=== PATIENT | female | born 1975 | race Caucasian/White ===

== ENCOUNTER 2017-04-22 13:41 | Emergency (ER) | payer SELFPAY ==
[2017-04-22 15:00] LABS: #Basophils 0.1 thou/uL (0.0-0.2); #Eosinphils 0.2 thou/uL (0.0-0.7); #Monocytes 1.1 thou/uL (0.11-0.59); #Neutrophils 7.8 thou/uL (1.40-6.50); %Basophils 0.5 % (0.0-1.0); %Eosinophils 1.6 % (0.0-10.0); %Lymphocytes 30.1 % (21.0-51.0); %Monocytes 8.4 % (0.0-10.0); Hematocrit 39.7 % (36.0-47.0); Mean Platelet Volume 7.5 fL (7.4-10.4); Red Blood Cell (RBC) Count 4.09 mill/uL (4.20-5.40); White Blood Cell (WBC) Count 13.1 thou/uL (4.8-10.8)
[2017-04-22 15:22] LABS: ALT (SGPT) 36 U/L (8-55); AST (SGOT) 29 U/L (5-34); Alkaline Phosphatase 95 U/L (40-150); Anion Gap 9 mmol/L (10-20); BUN (Urea Nitrogen) 9 mg/dL (7.0-18.7); Bilirubin, Total 0.2 mg/dL (0.2-1.2); Calc. Creatinine Clearance 0 mL/min (70-130); Calcium 9.3 mg/dL (7.8-10.44); Carbon Dioxide 24 mmol/L (22-29); Chloride 107 mmol/L (98-107); Estimated GFR-MDRD Greater than 90; Globulin 3.6 g/dL (2.4-3.5); Protein, Total 7.1 g/dL (6.0-8.3)
[2017-04-22] MEDS ORDERED: Ondansetron HCl/PF 4 MG/2 ML Vial ONE (15:35)
[2017-04-22 17:32] LABS: Bilirubin Negative (Negative); Blood, Urine Negative (Negative); Glucose, Urine (Dipstick) Negative (Negative); Ketone, Urine Negative (Negative); Nitrite Negative (Negative); Protein, Urine (Dipstick) Negative (Neg-Trace)
== END 2017-04-22 17:18 | disposition home or self-care (01) ==
LOC: ERS 13:41
DX: R11.2 Nausea with vomiting, unspecified (principal); R19.7 Diarrhea, unspecified; M10.9 Gout, unspecified; Z71.6 Tobacco abuse counseling; F17.210 Nicotine dependence, cigarettes, uncomplicated
CPT/HCPCS: 36415; 51701; 80053; 81003; 83690; 85025; 96361; 96374; J2405

== ENCOUNTER 2017-05-04 21:37 | Emergency (ER) | payer SELFPAY ==
[2017-05-04] MEDS ORDERED: Ketorolac Tromethamine 60 MG/2 ML VIAL ONE (23:48)
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
== END 2017-05-05 01:30 | disposition home or self-care (01) ==
LOC: ERS 21:37
DX: M54.6 Pain in thoracic spine (principal); M54.5 Low back pain; M10.9 Gout, unspecified; F17.210 Nicotine dependence, cigarettes, uncomplicated; V47.6XXA Car passenger injured in collision with fixed or stationary object in traffic accident, initial encounter
CPT/HCPCS: 71020; 96372; J1885

== ENCOUNTER 2017-06-09 18:08 | Emergency (ER) | payer SELFPAY ==
[2017-06-09] MEDS ORDERED: HYDROcodone/Acetaminophen 10/325 mg Tablet ONE (21:19)
== END 2017-06-09 21:30 | disposition home or self-care (01) ==
LOC: ERS 18:08
DX: K02.9 Dental caries, unspecified (principal)
CPT/HCPCS: 99282

== ENCOUNTER 2017-10-07 09:56 | Outpatient (CLI) | payer OTHER | END 2017-10-07 09:57 | disposition home or self-care (01) | LOC: BICRAD 09:56 | PROVIDERS: ATTEND Internal Medicine | DX: Z02.89 Encounter for other administrative examinations (principal) | CPT/HCPCS: 72100 ==

== ENCOUNTER 2018-08-15 10:56 | Emergency (ER) | payer SELFPAY | END 2018-08-15 12:35 | disposition home or self-care (01) | LOC: ERS 10:56 | DX: K02.9 Dental caries, unspecified (principal); M54.12 Radiculopathy, cervical region; F17.210 Nicotine dependence, cigarettes, uncomplicated | CPT/HCPCS: 99283 ==

== ENCOUNTER 2018-08-29 18:17 | Emergency (ER) | payer SELFPAY ==
[2018-08-29] MEDS ORDERED: Ketorolac Tromethamine 30 MG/ML VIAL ONE (20:18)
== END 2018-08-29 20:21 | disposition home or self-care (01) ==
LOC: ERS 18:17
DX: K04.7 Periapical abscess without sinus (principal); K02.9 Dental caries, unspecified; Z87.891 Personal history of nicotine dependence
CPT/HCPCS: 96372; J1885

== ENCOUNTER 2018-09-17 15:28 | Emergency (ER) | payer SELFPAY ==
[2018-09-17] MEDS ORDERED: Ibuprofen 800 MG TAB ONE (16:22)
--- NOTE | 2018-09-17 16:44 | RAD ---
XR Hand Rt 3 View STANDARD: 09/17/2018 4:09 PM CLINICAL INDICATION: Fall with right hand pain COMPARISON: None. TECHNIQUE: 3 views. Laterality: Right hand. FINDINGS: Bones: No acute osseous abnormality. Joints: Joint spaces are preserved.. Soft Tissue: Soft tissues are normal appearing.. IMPRESSION: No acute osseous abnormality..
--- NOTE | 2018-09-17 16:47 | RAD ---
RIGHT RIB SERIES WITH A PA VIEW OF THE CHEST INDICATION: Right-sided rib pain; history of fall COMPARISON: None. FINDINGS: Chest radiograph: The lungs are clear. Heart size is normal. No pleural effusion or pneumothorax is d emonstrated. Mild thoracolumbar scoliosis. There are surgical clips within the right upper quadrant of the abdomen. Right RIBS: No displaced right-sided rib fracture is demonstrated. IMPRESSION: No displaced left-sided rib fracture
== END 2018-09-17 16:56 | disposition home or self-care (01) ==
LOC: ERS 15:28
DX: S20.211A Contusion of right front wall of thorax, initial encounter (principal); S60.221A Contusion of right hand, initial encounter; M10.9 Gout, unspecified; W01.198A Fall on same level from slipping, tripping and stumbling with subsequent striking against other object, initial encounter

== ENCOUNTER 2018-12-06 14:19 | Outpatient (CLI) | payer OTHER ==
--- NOTE | 2018-12-06 14:35 | MMO ---
Bilateral MAMMO Bilat Screen DDI. CLINICAL HISTORY: Patient is 43 years old and is seen for screening. The patient has the following family history of breast cancer: mother, malignant (generic) and paternal grandmother, malignant (generic). The patient has no personal history of cancer. VIEWS: The views performed were: bilateral craniocaudal and bilateral mediolateral oblique. FILMS COMPARED: The present examination has been compared to a prior imaging study performed at [facility] on 05/28/2017. This study has been interpreted with the assistance of computer-aided detection. MAMMOGRAM FINDINGS: There are scattered fibroglandular densities. There are no suspicious masses, suspicious calcifications, or new areas of architectural distortion. IMPRESSION: THERE IS NO MAMMOGRAPHIC EVIDENCE OF MALIGNANCY. A ROUTINE FOLLOW-UP MAMMOGRAM IN 1 YEAR IS RECOMMENDED. ACR BI-RADS Category 1 - Negative MAMMOGRAPHY NOTE: 1. A negative mammogram report should not delay a biopsy if a dominant of clinically suspicious mass is present. 2. Approximately 10% to 15% of breast cancers are not detected by mammography. 3. Adenosis and dense breasts may obscure an underlying neoplasm. Reported by: HIEN RODRIGUEZ MD Electonically Signed: [id number]
== END 2018-12-06 14:20 | disposition home or self-care (01) ==
LOC: SCSMAMMO 14:19
PROVIDERS: ATTEND Family Medicine
DX: Z12.31 Encounter for screening mammogram for malignant neoplasm of breast (principal); Z80.3 Family history of malignant neoplasm of breast
CPT/HCPCS: 77067

== ENCOUNTER 2018-12-23 12:04 | Outpatient (CLI) | payer OTHER ==
--- NOTE | 2018-12-23 12:24 | RAD ---
CERVICAL SPINE 5 VIEWS: HISTORY: Cervical spondylosis. Neck pain, arm numbness and thickening FINDINGS: Degenerative changes are seen most prominent at C5-6 level. There is minimal anterolisthesis of C3 ov er C4 without change in alignment on flexion or extension. No acute osseous abnormalities are identified. IMPRESSION: Cervical spondylosis.
--- NOTE | 2018-12-23 13:30 | MRI ---
MRI Cervical spine without contrast: HISTORY: Cervical spondylosis. Patient claims of neck pain that radiates down bilateral arms with numbness and tingling on and off for 2 years. COMPARISON: None FINDINGS: No significant cord signal abnormality. There is suggestion of mild prominence of the palatine tonsils bilaterally without edema present. The prevertebral and paravertebral soft tissues have a normal appearance. There is straightening of the normal cervical lordotic curvature. C1-2:There is prominent pannus formation and degenerative changes at the articulation of the odontoid with anterior arch of C1. This does result in slight effacement of the ventral subarachnoid space. Neural foramina are patent at this level. C2-3: There is uncinate process hypertrophy on the right with minimal disc osteophyte complex present . There is mild bilateral neural foraminal narrowing. Central spinal canal is patent. C3-4: There is a mild disc osteophyte complex and uncinate process hypertrophy. No significant narrow ing of the central spinal canal. Facet degenerative changes are seen on the left. There is mild right and moderate to severe left-sided neural foraminal narrowing. C4-5: There is loss of intervertebral disc height. There is a broad-based disc osteophyte complex pre sent. This narrows the central spinal canal and results in mild flattening the anterior aspect of the spinal cord. There is moderate bilateral neural foraminal narrowing. C5-6: There is loss of intervertebral disc height. Endplate degenerative changes are seen at this lev el. Broad-based disc osteophyte complex is present. There is moderate to severe narrowing central spinal canal with flattening of the spinal cord. Normal signal intensity is present in the spinal cor d at this level. The right neural foramen is patent, but there is moderate left-sided neural foraminal narrowing. C6-7: There is loss of intervertebral disc height. A broad-based disc osteophyte complex is seen. Thi s results in narrowing of the central spinal canal with flattening of the spinal cord. There is mild to moderate right and moderate left-sided neural foraminal narrowing. C7-T1: No significant disc bulge disc herniation. Central spinal canal and neural foramina are patent . IMPRESSION: 1. Multilevel degenerative changes in the cervical spine as described above. 2. Nonspecific prominence of the palatine tonsils.
--- NOTE | 2018-12-23 14:01 | MRI ---
MRI Lumbar Spine Noncontrast: HISTORY: Post laminectomy syndrome. Low back pain with pain radiating to left leg. COMPARISON: 04/16/2011 FINDINGS: The visualized retroperitoneal structures demonstrate a normal appearance. Conus medullaris is normal in morphology and terminates at the L1 level. Postsurgical changes are seen at the L4-5 level which is an interval change from prior exam. Unilater al metallic susceptibility artifact is seen at this level related to unilateral left-sided pedicular screws and interconnecting suresh with intradiscal prosthesis. Otherwise, there is normal sign al intensity demonstrated in the bone marrow. L1-2: There is a minimal disc osteophyte complex without significant central canal or neural foramina l narrowing. L2-3: There is a small Schmorl's node seen in the superior endplate of the L3 vertebral body. Mild lo ss of intervertebral disc height is present. A mild broad-based disc osteophyte complex is present with mild facet hypertrophic changes. There is generalized mild narrowing of the central spinal canal . The neural foramina are patent L3-4: There is a mild disc osteophyte complex greater on the left. Mild facet hypertrophic changes ar e seen. There is no significant narrowing of the central spinal canal. Right neural foramen is patent, but there is mild left-sided neural foraminal narrowing. L4-5: There has been interval postsurgical changes. Previously noted prominent disc bulge at this lev el has improved with mild persistent disc osteophyte complex present. Facet hypertrophic changes are noted. There is no significant narrowing of the central spinal canal. The right neural foramen is patent. The left neural foramen is not completely assessed, but there is at least mild degree of narrowing primarily related to bony encroachment. L5-S1: There is a minimal disc osteophyte complex and facet degenerative changes. Central spinal shaquille l and neural foramina are patent. IMPRESSION: 1. Interval postsurgical changes at the L4-5 level with unilateral left-sided fusion hardware and int radiscal prosthesis. There is mild left-sided neural foraminal narrowing as described above related to bony encroachment; although, the left neural foramen is difficult to adequately assess due to meta llic susceptibility artifact. 2. Scattered disc degenerative changes in the remainder of the lumbar spine without high-grade centra l canal or neural foraminal narrowing seen.
== END 2018-12-23 12:05 | disposition home or self-care (01) ==
LOC: BICMRI 12:04
PROVIDERS: ATTEND Nurse Practitioner Family
DX: M96.1 Postlaminectomy syndrome, not elsewhere classified (principal); M43.02 Spondylolysis, cervical region; M54.5 Low back pain; M25.562 Pain in left knee; M51.36 Other intervertebral disc degeneration, lumbar region; Z98.1 Arthrodesis status
CPT/HCPCS: 72050; 72141; 72148

== ENCOUNTER 2019-01-07 21:41 | Emergency (ER) | payer MEDICAID, SELFPAY ==
--- NOTE | 2019-01-07 22:13 | RAD ---
LEFT KNEE FOUR VIEWS: 01/07/19 HISTORY: Left knee pain. FINDINGS/IMPRESSION: Degenerative changes are present. No fracture, dislocation, or bony destruction identified. POS: MARIUM
== END 2019-01-07 22:55 | disposition home or self-care (01) ==
LOC: ERS 21:41
DX: M17.11 Unilateral primary osteoarthritis, right knee (principal); M10.9 Gout, unspecified; F17.210 Nicotine dependence, cigarettes, uncomplicated

== ENCOUNTER 2019-01-25 08:01 | Outpatient (CLI) | payer OTHER ==
--- NOTE | 2019-01-25 10:25 | ULT ---
HEPATIC ULTRASOUND [facility] DOPPLER: HISTORY: Viral hepatitis. FINDINGS: The patient is post cholecystectomy and splenectomy. The liver demonstrates a homogeneous echotexture without focal mass or intrahepatic ductal dilatation . There is normal flow and spectral wave-forms in the portal and hepatic vasculature. No free fluid is seen. The common duct measures 4 mm in diameter. The liver measures 16.7 cm in length. IMPRESSION: No significant hepatic abnormalities are seen. POS: OFF
== END 2019-01-25 08:02 | disposition home or self-care (01) ==
LOC: BICULT 08:01
PROVIDERS: ATTEND Internal Medicine Gastroenterology
DX: B19.20 Unspecified viral hepatitis C without hepatic coma (principal)
CPT/HCPCS: 76705

== ENCOUNTER 2019-05-25 14:06 | Emergency (ER) | payer OTHER ==
[2019-05-25] MEDS ORDERED: HYDROcodone/Acetaminophen 10/325 mg Tablet ONE (15:19)
[2019-05-25] MEDS ORDERED: Lidocaine Viscous Sol 2% 15 ml UD Cup ONE (17:36)
[2019-05-25] MEDS ORDERED: Mag-Al 1200 mg/1200 mg/30 ML UDCUP ONE (17:36)
== END 2019-05-25 16:56 | disposition home or self-care (01) ==
LOC: ERS 14:06
DX: G89.29 Other chronic pain (principal); M54.2 Cervicalgia; M10.9 Gout, unspecified; F17.210 Nicotine dependence, cigarettes, uncomplicated; Z79.891 Long term (current) use of opiate analgesic; Z71.6 Tobacco abuse counseling
CPT/HCPCS: 99406

== ENCOUNTER 2019-07-14 17:10 | Emergency (ER) | payer OTHER | END 2019-07-14 20:10 | disposition left against medical advice (07) | LOC: ERS 17:10 | DX: Z53.21 Procedure and treatment not carried out due to patient leaving prior to being seen by health care provider (principal) ==

== ENCOUNTER 2019-07-27 14:15 | Emergency (ER) | payer OTHER ==
[~2019-07-27 14:15] MED LIST: Iopamidol 370 76% 100 ML VIAL ONE
[2019-07-27 14:42] LABS: #Basophils 0.1 thou/uL (0.0-0.2); #Eosinphils 0.2 thou/uL (0.0-0.7); #Lymphocytes 1.7 thou/uL (1.20-3.40); #Monocytes 0.9 thou/uL (0.11-0.59); #Neutrophils 5.3 thou/uL (1.40-6.50); %Basophils 0.7 % (0.0-1.0); %Eosinophils 2.4 % (0.0-10.0); %Monocytes 10.6 % (0.0-10.0); %Neutrophils 65.2 % (42.0-75.0); Mean Corpuscular HGB CONC 32.6 g/dL (32.0-36.0); Mean Corpuscular Hemoglobin 30.7 pg (27.0-31.0); Mean Corpuscular Volume 94.3 fL (78.0-98.0); Mean Platelet Volume 8.4 fL (7.4-10.4); Platelet Count 320 thou/uL (130-400); RBC Distribution Width 12.6 % (11.5-14.5); Red Blood Cell (RBC) Count 4.55 mill/uL (4.20-5.40); White Blood Cell (WBC) Count 8.1 thou/uL (4.8-10.8)
[2019-07-27 15:05] LABS: ALT (SGPT) 10 U/L (8-55); AST (SGOT) 16 U/L (5-34); Alkaline Phosphatase 128 U/L (40-110); Anion Gap 15 mmol/L (10-20); BUN (Urea Nitrogen) 11 mg/dL (7.0-18.7); Bilirubin, Total 0.3 mg/dL (0.2-1.2); CK (CPK) 54 U/L (29-168); Calc. Creatinine Clearance 0 mL/min (70-130); Calcium 9.4 mg/dL (7.8-10.44); Carbon Dioxide 24 mmol/L (22-29); Chloride 104 mmol/L (98-107); Estimated GFR-MDRD Greater than 90; Globulin 3.5 g/dL (2.4-3.5); Glucose 110 mg/dL (70-105); Potassium 4.1 mmol/L (3.5-5.1); Protein, Total 7.5 g/dL (6.0-8.3); Sodium 139 mmol/L (136-145)
--- NOTE | 2019-07-27 15:08 | RAD ---
PORTABLE CHEST 1 VIEW: DATE: 07/27/2019. TIME: 2:34 PM. HISTORY: Shortness of breath, chest pain. FINDINGS: Comparison is made with the exam of 01/01/2014. The heart size is borderline. The lungs are expanded without focal areas of consolidation, pneumotho rax, or pleural effusions. There is no evidence of karolina pulmonary edema. IMPRESSION: No acute process. POS: [facility]
[2019-07-27 16:04] LABS: BHCG - Serum Negative (NEGATIVE); Pregs Control Background? CLEAR/WHITE (CLR/WHITE); Pregs Control Bar Appear? YES (CONTROL BAR)
[2019-07-27] MEDS ORDERED: Acetaminophen 500 MG TAB ONE (16:04)
--- NOTE | 2019-07-27 16:30 | CT ---
EXAM: CT angiogram of the chest including 3-D rendering: HISTORY: Chest pain shortness of breath COMPARISON: None FINDINGS: There is adequate opacification of the pulmonary arteries. No evidence for aortic aneurysm or dissection. No convincing CT evidence for acute pulmonary embolism. No significant acute pulmonary parenchymal process. No evidence for mediastinal mass or adenopathy. No evidence for pleural or pericardial effusion. The visualized upper abdomen is unremarkable. IMPRESSION: No convincing CT evidence for acute pulmonary embolism.
== END 2019-07-27 18:30 | disposition home or self-care (01) ==
LOC: ERS 14:15
DX: R50.9 Fever, unspecified (principal); M10.9 Gout, unspecified; F41.9 Anxiety disorder, unspecified; F32.9 Major depressive disorder, single episode, unspecified; Z87.891 Personal history of nicotine dependence
CPT/HCPCS: 36415; 71045; 71275; 80053; 82550; 83605; 83690; 83880; 84484; 84703; 85025; 85379; 87040; 87633; 87804; 93005; 96360; Q9967; U0001

== ENCOUNTER 2019-09-18 06:27 | Outpatient (CLI) | payer OTHER ==
--- NOTE | 2019-09-18 16:16 | EKG ---
Test Reason : Blood Pressure : / mmHG Vent. Rate : 058 BPM Atrial Rate : 058 BPM P-R Int : 182 ms QRS Dur : 094 ms QT Int : 420 ms P-R-T Axes : 058 039 030 degrees QTc Int : 412 ms Sinus bradycardia Biatrial enlargement Abnormal ECG When compared with ECG of 27-JUL-2019 14:25, (Unconfirmed) No significant change was found Confirmed by DEBI BUCK, . SMarta (4) on 09/18/2019 4:16:32 PM Referred By: JENS Confirmed By:DR. Clarisse CARRERA MD
[2019-09-18 16:36] LABS: Hemoglobin 13.4 g/dL (12.0-16.0); Mean Corpuscular HGB CONC 31.4 g/dL (32.0-36.0); Mean Corpuscular Hemoglobin 29.6 pg (27.0-31.0); Mean Corpuscular Volume 94.1 fL (78.0-98.0); Mean Platelet Volume 9.3 fL (7.4-10.4); Platelet Count 330 thou/uL (130-400); RBC Distribution Width 12.3 % (11.5-14.5); Red Blood Cell (RBC) Count 4.55 mill/uL (4.20-5.40); White Blood Cell (WBC) Count 10.8 thou/uL (4.8-10.8)
[2019-09-18 16:52] LABS: Anion Gap 13 mmol/L (10-20); BUN (Urea Nitrogen) 9 mg/dL (7.0-18.7); Calc. Creatinine Clearance 0 mL/min (70-130); Calcium 9.9 mg/dL (7.8-10.44); Carbon Dioxide 24 mmol/L (22-29); Chloride 104 mmol/L (98-107); Estimated GFR-MDRD Greater than 90; Glucose 86 mg/dL (70-105); Sodium 137 mmol/L (136-145)
[2019-09-19 11:32] LABS: SARS-CoV-2 MS2 Positive; SARS-CoV-2 N Gene Negative; SARS-CoV-2 S Gene Negative; SARS-CoV-2 orf1ab Negative
== END 2019-09-18 06:28 | disposition home or self-care (01) ==
LOC: LABBT 06:27
PROVIDERS: ATTEND Neurological Surgery
DX: Z01.818 Encounter for other preprocedural examination (principal); Z11.59 Encounter for screening for other viral diseases; M47.12 Other spondylosis with myelopathy, cervical region
CPT/HCPCS: 80048; 85027; 87081; 87635; 93005; 93010; U0003

== ENCOUNTER 2019-09-18 15:00 | Inpatient (IN) | payer OTHER ==
[2019-09-18 15:09] VITALS: BMI 35.9
[2019-09-21] MEDS ORDERED: Midazolam HCl 2 mg/2 ml Vial ONE ×3 (08:06→09:03)
[2019-09-21] MEDS ORDERED: Fentanyl 100 MCG/2 ML VIAL ONE ×6 (08:57→12:46)
[2019-09-21] MEDS ORDERED: Glycopyrrolate 0.2 MG/ML 5 ML SYRINGE ONE ×2 (10:50→13:24)
--- NOTE | 2019-09-21 11:02 | OP ---
DATE OF PROCEDURE: 09/21/2019 TEACHING MUSIC LESSONS: Dorothy Chung PA-C PROCEDURE PERFORMED: Anterior cervical diskectomy C4 through C7, interbody arthrodesis, intervertebral biomechanical device, local morselized autograft, demineralized bone matrix, anterior titanium instrumentation C4 through C7. DESCRIPTION OF PROCEDURE: The patient was brought to the operating room and intubated. She was positioned supine with the head in modest extension on a gel-filled donut. An incision was made in the right precervical area and dissected medial to the sternocleidomastoid muscle, identified the anterior cervical spinal, and the level was confirmed by x-ray. We debrided the anterior osteophytes, placed distraction across the disk spaces, and using operative microscope and microdissection techniques, completely decompressed the intervertebral discs to the level of the dura at each affected disk. The bony endplates were then decorticated for the purpose of arthrodesis and appropriate-sized intervertebral biomechanical PEEK device was brought into the field. It was filled with demineralized bone matrix and local morselized autograft, and tapped in place securely at C4-5, C5-6, and C6-7. Next, an anterior plate was brought into the field and secured at C4, C5, C6, and C7 using two 14-mm screws at each level. The wound was then extensively irrigated and MAC hemostasis was secured and the wound was closed in anatomic layers over drain. Job ID: [id number]
[2019-09-21] MEDS ORDERED: Dexamethasone 20 MG/5 ML VIAL ONE (13:24)
[2019-09-21] MEDS ORDERED: Ketorolac Tromethamine 30 MG/ML VIAL ONE (13:24)
[2019-09-21] MEDS ORDERED: Ondansetron PF 4 MG/2 ML Vial ONE (13:24)
[2019-09-21] MEDS ORDERED: PROPOFOL 200 MG/20 ML VIAL ONE (13:24)
[2019-09-21] MEDS ORDERED: Lidocaine 1% PF 5 ML VIAL ONE (13:24)
[2019-09-21] MEDS ORDERED: PHENYLEPHRINE-NS 100 MCG/ML 10 ML SYRINGE ONE (13:24)
[2019-09-21] MEDS ORDERED: Rocuronium Bromide 10 MG/ML (10ML VIAL) ONE (13:24)
[2019-09-21] MEDS ORDERED: EPHEDRINE 25 MG/5 ML SYRINGE ONE (13:24)
[2019-09-21] MEDS ORDERED: diphenhydrAMINE 25 MG CAP PO PRN (13:26)
[2019-09-21] MEDS ORDERED: diphenhydrAMINE 50 MG/ML VIAL IVP PRN (13:26)
[2019-09-21] MEDS ORDERED: tiZANidine HCl 4 MG TAB PO PRN (13:26)
[2019-09-21] MEDS ORDERED: Ondansetron PF 4 MG/2 ML Vial IVP PRN (13:26)
[2019-09-21] MEDS ORDERED: Mag-Al 1200 mg/1200 mg/30 ML UDCUP PO PRN (13:26)
[2019-09-21] MEDS ORDERED: traMADol HCl 50 MG TAB PO PRN ×2 (13:26)
[2019-09-21] MEDS ORDERED: HYDROcodone/Acetaminophen 10/325 mg Tablet PO PRN (13:26)
[2019-09-21] MEDS: Morphine 4 MG/ML VIAL SLOW IVP PRN ×2 (15:36→18:11)
[2019-09-21] MEDS: Sodium Chloride 0.9% 1,000 ML IV SCH (15:37)
[2019-09-21] MEDS: CEFAZOLIN 2 GM in Premix Bag 1 BAG IVPB SCH (16:39)
[2019-09-21] MEDS: Morphine 2 MG/ML SYRINGE SLOW IVP PRN (20:13)
[2019-09-21] MEDS: HYDROcodone/Acetaminophen 10/325 mg Tablet PO PRN (20:14)
[2019-09-21] MEDS ORDERED: tiZANidine HCl 4 MG TAB PO SCH (21:00)
[2019-09-21] MEDS ORDERED: traZODone HCl 50 MG TAB PO SCH (21:00)
[2019-09-21] MEDS ORDERED: Chloraseptic Spray 180 ml Bottle PO PRN (21:04)
[2019-09-21] MEDS ORDERED: hydrOXYzine 25 MG TAB PO SCH (21:15)
[2019-09-22] MEDS: Morphine 2 MG/ML SYRINGE SLOW IVP PRN (00:15)
[2019-09-22] MEDS: HYDROcodone/Acetaminophen 10/325 mg Tablet PO PRN ×3 (00:16→09:16)
[2019-09-22] MEDS: CEFAZOLIN 2 GM in Premix Bag 1 BAG IVPB SCH ×2 (00:18→09:07)
[2019-09-22] MEDS: Sodium Chloride 0.9% 1,000 ML IV SCH ×2 (05:11→09:22)
[2019-09-22] MEDS ORDERED: Tamsulosin HCl 0.4 MG CAP PO SCH (06:00)
[2019-09-22] MEDS ORDERED: Dexamethasone 4 mg/ml Vial SLOW IVP SCH (08:45)
[2019-09-22 14:40] VITALS: BP 128/68; TEMP 98.4
[2019-09-22] MEDS ORDERED: hydrOXYzine 25 MG TAB PO SCH (21:00)
--- NOTE | 2019-09-23 02:51 | DIS ---
DATE OF ADMISSION: 09/21/2019 DATE OF DISCHARGE: 09/22/2019 The patient is a 44-year-old female, recently evaluated in our office for cervical degenerative disease. She underwent C4-C7 ACDF on 09/21/2019. Following the surgery, she was transitioned to the Med/Surg floor, where her pain has been well-controlled with p.o. medications. She is tolerating a soft diet and she is voiding appropriately. She did have some mild dysphagia and hoarseness postoperatively, but again was tolerating a soft diet without difficulty. I examined her on postoperative day #1. She was awake, alert, in no acute distress. She has some mild hoarseness to her voice. She has free active range of motion of all extremities. She was ambulating without any difficulty. Her incision was clean, dry, and intact. There was a small amount of blood in the ZOË drain. ZOË drain was removed on postoperative day #1. The patient was dismissed. I discussed home care precautions and will follow up with the patient in 2 weeks. She was dismissed with scripts for [place] and Zanaflex. Job ID: [id number] [facility]
--- NOTE | 2019-09-25 10:09 | PQF ---
JOSE RICHARDSON JONATHAN A MD [id number] [facility] [id number] CLINICAL DOCUMENTATION CLARIFICATION FORM: POST DISCHARGE Addendum to original discharge summary date: ____ Late entry note date: __ DATE: 09/25/2019 ATTN: Froilan Stubbs Please exercise your independent, professional judgment in responding to the clarification form. Clinical indicators are provided on the bottom of this form for your review Please check appropriate box(s): [ ] Dysphagia as a complication of cervical fusion [ ] Dysphagia not a complication of cervical fusion [ ] Other diagnosis [ ] Unable to determine CLINICAL INDICATORS - SIGNS / SYMPTOMS / LABS DS 09/21 "she did have some mild dysphagia" DS 09/21 "hoarseness postoperatively" DS 09/21 "She underwent C4-C7 ACDF" RISK FACTORS s/p cervical fusion-OP Note 09/20 Cervical spodylosis with myelopathy-OP Note 09/20 Hx smoker-Anesthesia TREATMENT: Monitor-DS 09/21 Soft diet only-DS 09/21 (This form is maintained as a part of the permanent medical record) 2014 [employer]. All Rights Reserved Emma [email or web address] [phone] ARABELLA
== END 2019-09-22 14:40 | disposition home or self-care (01) | DRG 473 ==
LOC: SURG A 09-21 07:05 → SJJU 09-21 13:56
PROVIDERS: ADMIT Neurological Surgery; ATTEND Neurological Surgery
PROC: 0RG20A0 Fusion of 2 or more Cervical Vertebral Joints with Interbody Fusion Device, Anterior Approach, Anterior Column, Open Approach (ICD-10-PCS; principal; 2019-09-21)
PROC: 0RB30ZZ Excision of Cervical Vertebral Disc, Open Approach (ICD-10-PCS; 2019-09-21)
DX: M47.12 Other spondylosis with myelopathy, cervical region (principal); Z88.1 Allergy status to other antibiotic agents; Z90.49 Acquired absence of other specified parts of digestive tract; Z98.1 Arthrodesis status; Z86.19 Personal history of other infectious and parasitic diseases; M10.9 Gout, unspecified; R13.10 Dysphagia, unspecified; Z87.891 Personal history of nicotine dependence; F32.9 Major depressive disorder, single episode, unspecified; F41.9 Anxiety disorder, unspecified
CPT/HCPCS: 76000; C1713; C1776; J0690; J1100; J1885; J2001; J2250; J2270; J2405; J2704; J3010

== ENCOUNTER 2019-11-30 11:13 | Outpatient (CLI) | payer OTHER ==
--- NOTE | 2019-11-30 12:03 | RAD ---
Exam: 3 views cervical spine COMPARISON: 09/27/2019 HISTORY: Follow up cervical fusion FINDINGS: Predental space is normal. No prevertebral soft tissue swelling. Stable straightening of ce rvical lordosis. No fracture. On the AP projection and open-mouth projection no malalignment Anterior fusion plate with transvertebral body screw at C4, C5, C6 and C7. No perihardware lucency. C 4-C5, C5-C6 and C6-C7 disc prosthesis. IMPRESSION: Stable and uncomplicated cervical fusion.
== END 2019-11-30 11:14 | disposition home or self-care (01) ==
LOC: TBSIIMAG 11:13
PROVIDERS: ATTEND Neurological Surgery
DX: M47.12 Other spondylosis with myelopathy, cervical region (principal); Z98.1 Arthrodesis status
CPT/HCPCS: 72040

== ENCOUNTER 2020-03-19 07:19 | Day surgery (SDC) | payer OTHER ==
[2020-03-19 08:11] VITALS: BP 98/65; TEMP 98.2
[2020-03-19] MEDS ORDERED: Iopamidol-M 200 41% 20 ML VIAL ONE (11:06)
--- NOTE | 2020-03-19 12:47 | RAD ---
MYELOGRAM LUMBAR: DATE: 03/19/2020 HISTORY: 44-year-old female with "Lumbar radiculopathy" and "lumbar disc degeneration" TECHNIQUE: Prior MRI of 12/23/2018 was reviewed, demonstrating conus medullaris terminating at L1. Signed informed consent obtained. Patient placed prone on fluoroscopy table. Skin of lower back prepa red and draped in usual sterile fashion. 25-gauge needle used to apply buffered lidocaine superficially and deeply. Level selected:L1-2. Approach:right paramedian interlaminar. 22-gauge spinal needle advanced into spinal canal under brief, intermittent fluoroscopy. Upon return of clear CSF, 10 mL Isovue [id number] media was injected into the intrathecal space. Spinal needle was removed. Patient tolerated procedure well. No complications. Total fluoroscopy time:1.3 minutes. Dose area product:651.5 uGy*m^2. 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 Inferior to that, there are 5 standard lumbar type vertebrae. Vertebral body heights are maintained. Mild to moderate disc space narrowing at L2-3. Unilateral left pedicle screws and tiny metallic markers for interbody graft, at L4-5. Hypertrophic degenerative changes or left-sided onlay bone graft fusion on the left at lower levels. Slight degenerative retrolisthesis of L3 on L4 and L4 on L5. Fluoroscopic spot image demonstrates intrathecal contrast within the spinal canal. IMPRESSION: 1) successful lumbar myelogram. 2) posterior lumbar interbody fusion at L4-5, including unilateral left pedicle screws. 3) See separate report of subsequent CT lumbar myelogram.
--- NOTE | 2020-03-19 13:12 | CT ---
CT lumbar spine with contrast: (CT lumbar myelogram) 03/19/2020 HISTORY: 44-year-old female with lumbar disc degeneration and lumbar radiculopathy FINDINGS: There is a transitional level at thoracolumbar junction. Review of CT pulmonary angiogram of 0 demonstrates 11 fully developed paired ribs. 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 There are 5 standard lumbar type vertebrae caudal to this, including standard L5-S1 morphology. Conus medullaris terminates at L1. No scoliosis. Vertebral body heights are maintained. Cauda equina is arranged in a symmetrical, normal distribution throughout the thecal sac. No spondylolysis. T11-12: Normal T12-L1: Normal L1-2: Mild ligamentum flavum thickening. Otherwise normal. L2-3: Mild disc space narrowing. Diffuse disc bulge indents ventral aspect of thecal sac causing mild thecal sac stenosis. No significant central spinal canal stenosis. Mild bilateral neural foraminal stenosis. Mild ligamentum flavum thickening. Mild bilateral facet DJD. L3-4: Slight retrolisthesis of L3 on L4. Mild disc bulge. No central spinal canal stenosis. Mild righ t and mild to moderate left neural foraminal stenosis. L4-5: Unilateral left pedicle screws without evidence of hardware loosening or malpositioning. Bilate ral hemilaminectomy defects generous caliber of spinal canal and thecal sac. Moderate disc space narrowing. Metallic markers in disc space. Minimal retrolisthesis of L4 on L5. Moderate disc space na rrowing. Mild disc bulge. Mild right and mild to moderate left neural foraminal stenosis. Subtle finding of soft tissue density at left lateral recesses represent postsurgical scar tissue that abuts the left L5 nerve root. Moderate to severe right facet DJD. Questionable ankylosis of left facet joint versus severe left facet joint space narrowing. L5-S1: There is irregular bony hypertrophy of right posterior element protruding into the posterior p erivertebral space which may represent prior onlay bone graft fusion. However, there is no ankylosis of the right L4-5 or right L5-S1 facet joints. Mild bilateral neural foraminal stenosis. Di sc space maintained. Mild disc bulge. No central spinal canal stenosis. IMPRESSION: 1.) No high-grade central spinal canal stenosis at any level. 2) status post posterior lumbar interbody fusion at L4-5, including unilateral left pedicle screws. 3) status post bilateral hemilaminectomies at L4-5. 4) questionable postsurgical scar tissue around left L5 nerve root at the left lateral recess of L4-5 . 5) bony hypertrophy of posterior elements at L5 level, questionable for prior onlay bone graft surger y. If so, although the bone chips have diffuse, there is no ankylosis of the right-sided facet joints at L4-5 and L5-S1. 6) facet osteoarthrosis at lower levels.
== END 2020-03-19 10:00 | disposition home or self-care (01) ==
LOC: RAD 07:19
PROVIDERS: ATTEND Neurological Surgery
PROC: B02B1ZZ Computerized Tomography (CT Scan) of Spinal Cord using Low Osmolar Contrast (ICD-10-PCS; principal; 2020-03-19)
DX: M51.16 Intervertebral disc disorders with radiculopathy, lumbar region (principal); G43.909 Migraine, unspecified, not intractable, without status migrainosus; F32.9 Major depressive disorder, single episode, unspecified; Z88.1 Allergy status to other antibiotic agents
CPT/HCPCS: 62304; 72132; Q9966

== ENCOUNTER 2020-07-19 15:00 | Outpatient (CLI) | payer OTHER | END 2020-07-19 15:01 | disposition home or self-care (01) | LOC: BICMRI 15:00 | PROVIDERS: ATTEND Orthopaedic Surgery | DX: M25.561 Pain in right knee (principal); S83.231A Complex tear of medial meniscus, current injury, right knee, initial encounter ==

== ENCOUNTER 2020-09-23 16:30 | Outpatient (CLI) | payer OTHER ==
[2020-09-23 17:41] LABS: #Basophils 0.1 10x3/uL (0.0-0.2); #Eosinphils 0.3 10x3/uL (0.0-0.5); #Monocytes 0.9 10x3/uL (0.0-1.1); %Basophils 0.8 % (0.0-2.0); %Eosinophils 2.4 % (0.0-6.0); %Lymphocytes 41.1 % (18.0-47.0); %Monocytes 8.2 % (0.0-10.0); %Neutrophils 47.3 % (40.0-75.0); Hemoglobin 13.2 g/dL (12.0-15.5); Mean Corpuscular HGB CONC 32.8 g/dL (32.0-36.0); Mean Corpuscular Hemoglobin 30.3 pg (27.0-33.0); Mean Corpuscular Volume 92.6 fl (81.6-98.3); Mean Platelet Volume 11.2 fl (7.4-10.4); Platelet Count 395 10x3/uL (150-450); RBC Distribution Width 13.6 % (11.5-14.5); Red Blood Cell (RBC) Count 4.35 10x6/uL (3.90-5.03); White Blood Cell (WBC) Count 10.5 10x3/uL (3.5-10.5)
[2020-09-24 02:13] LABS: SARS-CoV-2 PCR by NAA Not Detected (NotDetected)
== END 2020-09-23 16:31 | disposition home or self-care (01) ==
LOC: LABBT 16:30
PROVIDERS: ATTEND Orthopaedic Surgery
DX: Z01.812 Encounter for preprocedural laboratory examination (principal); Z20.822 Contact with and (suspected) exposure to COVID-19; S83.231A Complex tear of medial meniscus, current injury, right knee, initial encounter
CPT/HCPCS: 85025; 87635; U0003; U0005

== ENCOUNTER 2020-09-26 08:21 | Day surgery (SDC) | payer OTHER ==
[2020-09-25 09:07] VITALS: BMI 36.3
[2020-09-26] MEDS ORDERED: EPINEPHrine 1 MG/ML AMP ONE (09:52)
[2020-09-26] MEDS ORDERED: Bupivacaine 0.25% HCL 30 ML VIAL ONE (09:52)
[2020-09-26] MEDS ORDERED: Lidocaine 1% (PF) 30 ML VIAL ONE (09:52)
[2020-09-26] MEDS ORDERED: Midazolam HCl 2 mg/2 ml Vial ONE (10:16)
[2020-09-26] MEDS ORDERED: Fentanyl 100 MCG/2 ML VIAL ONE ×4 (10:16→11:38)
[2020-09-26] MEDS ORDERED: Lidocaine 1% PF 5 ML VIAL ONE (10:17)
[2020-09-26] MEDS ORDERED: Dexamethasone 20 MG/5 ML VIAL ONE (10:17)
[2020-09-26] MEDS ORDERED: PROPOFOL 200 MG/20 ML VIAL ONE (10:17)
[2020-09-26] MEDS ORDERED: Ondansetron PF 4 MG/2 ML Vial ONE (10:17)
[2020-09-26] MEDS ORDERED: Promethazine HCl 25 MG/ML VIAL ONE (11:39)
[2020-09-26] MEDS ORDERED: HYDROcodone/Acetaminophen 5/325 mg Tablet ONE (13:21)
== END 2020-09-26 14:40 | disposition home or self-care (01) ==
LOC: SDC 08:21
PROVIDERS: ATTEND Orthopaedic Surgery
PROC: 0SBC4ZZ Excision of Right Knee Joint, Percutaneous Endoscopic Approach (ICD-10-PCS; principal; 2020-09-26)
DX: S83.231A Complex tear of medial meniscus, current injury, right knee, initial encounter (principal); M23.300 Other meniscus derangements, unspecified lateral meniscus, right knee; M17.12 Unilateral primary osteoarthritis, left knee; Z79.899 Other long term (current) drug therapy; Z88.1 Allergy status to other antibiotic agents
CPT/HCPCS: J0171; J0690; J1100; J2001; J2250; J2405; J2550; J2704; J3010; S0020

== ENCOUNTER 2022-09-11 08:30 | Inpatient (IN) | payer OTHER ==
[2022-09-11 09:19] VITALS: BMI 38.7
[2022-09-14] MEDS ORDERED: Acetaminophen 325 MG TAB PO PRN (09:32)
[2022-09-14] MEDS ORDERED: diphenhydrAMINE 50 MG/ML VIAL IVP PRN (09:32)
[2022-09-14] MEDS ORDERED: Mag-Al 1200 mg/1200 mg/30 ML UDCUP PO PRN (09:32)
[2022-09-14] MEDS ORDERED: Cyclobenzaprine 10 MG TAB PO PRN (09:32)
[2022-09-14] MEDS ORDERED: traMADol HCl 50 MG TAB PO PRN (09:32)
[2022-09-14] MEDS ORDERED: Promethazine 25 MG TAB PO PRN (09:32)
[2022-09-14] MEDS ORDERED: Milk Of Magnesia 30 ML UDCUP PO PRN (09:32)
[2022-09-14] MEDS ORDERED: Acetaminophen 500 MG TAB ONE (09:43)
[2022-09-14] MEDS ORDERED: Midazolam HCl 2 mg/2 ml Vial ONE (09:43)
[2022-09-14] MEDS ORDERED: Vancomycin 1 GM VIAL ONE ×2 (09:46→10:45)
[2022-09-14] MEDS ORDERED: Bacitracin Zinc Ointment 30 gm TUBE ONE (09:54)
[2022-09-14] MEDS ORDERED: fentaNYL PF 100 MCG/2 ML SYRINGE ONE (09:56)
[2022-09-14] MEDS ORDERED: CEFAZOLIN 2 GM VIAL ONE (10:05)
[2022-09-14] MEDS ORDERED: Sodium Chloride 0.9% 100 ML ONE (10:05)
[2022-09-14] MEDS ORDERED: ePHEDrine Sulfate 50 MG/10 ML VIAL ONE (10:21)
[2022-09-14] MEDS ORDERED: Glycopyrrolate 0.2 MG/ML 5 ML SYRINGE ONE (10:21)
[2022-09-14] MEDS ORDERED: PROPOFOL 200 MG/20 ML VIAL ONE (10:21)
[2022-09-14] MEDS ORDERED: Dexamethasone 20 MG/5 ML VIAL ONE (10:21)
[2022-09-14] MEDS ORDERED: Ondansetron PF 4 MG/2 ML Vial ONE (10:21)
[2022-09-14] MEDS ORDERED: Rocuronium Bromide 10 MG/ML (10ML VIAL) ONE (10:21)
[2022-09-14] MEDS ORDERED: PHENYLEPHRINE-NS 100 MCG/ML 10 ML SYRINGE ONE (10:21)
[2022-09-14] MEDS ORDERED: SUGAMMADEX SODIUM 200 MG/2 ML VIAL ONE (11:27)
[2022-09-14] MEDS ORDERED: PROPOFOL 20 ML ONE (11:43)
[2022-09-14] MEDS ORDERED: HYDROmorphone 0.5 MG/0.5 ML SYRINGE ONE ×2 (12:02→12:51)
[2022-09-14] MEDS ORDERED: Fentanyl 250 MCG/5 ML VIAL ONE (12:09)
[2022-09-14] MEDS ORDERED: Acetaminophen/Codeine 30-300mg Tablet PO PRN ×2 (13:42→13:43)
[2022-09-14] MEDS: HYDROcodone/Acetaminophen 10/325 mg Tablet PO PRN ×2 (13:57→17:58)
[2022-09-14] MEDS: tiZANidine HCl 4 MG TAB PO PRN (13:58)
[2022-09-14] MEDS: Sodium Chloride 0.9% 1,000 ML IV SCH (13:58)
[2022-09-14] MEDS: Ondansetron PF 4 MG/2 ML Vial IVP PRN ×2 (14:29→20:27)
[2022-09-14] MEDS: Gabapentin 300 MG CAP PO SCH (20:26)
[2022-09-14] MEDS: buPROPion 75 MG TAB PO SCH (20:27)
[2022-09-14] MEDS: Venlafaxine HCl XR 150 MG CAP PO SCH (22:32)
[2022-09-15] MEDS: Sodium Chloride 0.9% 1,000 ML IV SCH ×2 (00:21→11:41)
[2022-09-15] MEDS: Morphine 2 MG/ML VIAL SLOW IVP PRN ×3 (01:46→19:56)
[2022-09-15] MEDS: HYDROcodone/Acetaminophen 10/325 mg Tablet PO PRN ×3 (01:47→21:14)
[2022-09-15] MEDS: Venlafaxine HCl XR 150 MG CAP PO SCH ×2 (07:55→19:57)
[2022-09-15] MEDS: buPROPion 75 MG TAB PO SCH ×2 (07:55→19:57)
[2022-09-15] MEDS: Gabapentin 300 MG CAP PO SCH ×2 (07:55→19:56)
[2022-09-15] MEDS: tiZANidine HCl 4 MG TAB PO PRN ×2 (13:02→20:07)
[2022-09-16] MEDS: Sodium Chloride 0.9% 1,000 ML IV SCH (02:15)
[2022-09-16] MEDS: HYDROcodone/Acetaminophen 10/325 mg Tablet PO PRN ×2 (02:18→05:49)
[2022-09-16] MEDS: tiZANidine HCl 4 MG TAB PO PRN (05:36)
[2022-09-16 08:38] VITALS: BP 96/59; TEMP 98.2
[2022-09-16] MEDS: buPROPion 75 MG TAB PO SCH (09:15)
[2022-09-16] MEDS: Gabapentin 300 MG CAP PO SCH (09:15)
[2022-09-16] MEDS: Venlafaxine HCl XR 150 MG CAP PO SCH (09:15)
== END 2022-09-16 10:59 | disposition home or self-care (01) | DRG 473 ==
LOC: SURG A 09-14 08:00 → SJJU 09-14 13:17
PROVIDERS: ADMIT Neurological Surgery; ATTEND Neurological Surgery
PROC: 0RG2071 Fusion of 2 or more Cervical Vertebral Joints with Autologous Tissue Substitute, Posterior Approach, Posterior Column, Open Approach (ICD-10-PCS; principal; 2022-09-14)
PROC: 01N10ZZ Release Cervical Nerve, Open Approach (ICD-10-PCS; 2022-09-14)
DX: M96.0 Pseudarthrosis after fusion or arthrodesis (principal); Y83.8 Other surgical procedures as the cause of abnormal reaction of the patient, or of later complication, without mention of misadventure at the time of the procedure; G89.29 Other chronic pain; G43.909 Migraine, unspecified, not intractable, without status migrainosus; F32.A Depression, unspecified; F41.9 Anxiety disorder, unspecified; Z88.1 Allergy status to other antibiotic agents
CPT/HCPCS: C1713; C1768; C1776; J1100; J1170; J2250; J2272; J2405; J2704; J3010; J3370; J3490; J7050; Q0169

== ENCOUNTER 2022-09-11 08:49 | Outpatient (CLI) | payer OTHER ==
[2022-09-11 11:49] LABS: Hemoglobin 14.2 g/dL (12.0-15.5); Mean Corpuscular HGB CONC 32.1 g/dL (32.0-36.0); Mean Corpuscular Hemoglobin 29.2 pg (27.0-33.0); Mean Platelet Volume 11.4 fl (7.4-10.4); Platelet Count 387 10x3/uL (150-450); RBC Distribution Width 14.7 % (11.5-14.5); Red Blood Cell (RBC) Count 4.87 10x6/uL (3.90-5.03); White Blood Cell (WBC) Count 9.8 10x3/uL (3.5-10.5)
[2022-09-11 11:53] LABS: Anion Gap 14 mmol/L (10-20); BUN (Urea Nitrogen) 11 mg/dL (7.0-18.7); Calc. Creatinine Clearance 0 mL/min (70-130); Calcium 9.4 mg/dL (7.8-10.44); Carbon Dioxide 23 mmol/L (22-29); Chloride 105 mmol/L (98-107); Estimated GFR 108; Glucose 89 mg/dL (70-105); Potassium 4.4 mmol/L (3.5-5.1); Sodium 138 mmol/L (136-145)
== END 2022-09-11 08:50 | disposition home or self-care (01) ==
LOC: LABBT 08:49
PROVIDERS: ATTEND Neurological Surgery
DX: Z01.818 Encounter for other preprocedural examination (principal); M54.12 Radiculopathy, cervical region
CPT/HCPCS: 80048; 85027; 93005; 93010